=== PATIENT | male | born 1995 | race Caucasian/White ===

== ENCOUNTER 2017-05-24 14:01 | Emergency (ER) | payer MEDICAID ==
[~2017-05-24] VITALS: Ht 182.9 cm; Wt 81.8 kg
[2017-05-24] MEDS ORDERED: RIVA20TA PO (14:12)
[2017-05-24] MEDS ORDERED: ACYC200C PO (14:12)
[2017-05-24] MEDS ORDERED: BUDE3CAP15 PO (14:12)
[2017-05-24] MEDS ORDERED: URSO300C4 PO (14:12)
[2017-05-24] MEDS ORDERED: SIRO1 PO (14:12)
[2017-05-24 15:25] VITALS: BP 129/86
[2017-05-24] MEDS ORDERED: HYDROmorphone 2 MG/ML SYRINGE IM ONE (15:45)
[2017-05-24] MEDS ORDERED: ONDANSETRON HCL 4 MG TABLET PO ONE (15:45)
== END 2017-05-24 15:56 | disposition home or self-care (01) ==
LOC: EMS 14:03
DX: S29.012A Strain of muscle and tendon of back wall of thorax, initial encounter (principal); X58.XXXA Exposure to other specified factors, initial encounter; Y93.89 Activity, other specified; Y92.89 Other specified places as the place of occurrence of the external cause; Y99.8 Other external cause status; Z99.2 Dependence on renal dialysis
CPT/HCPCS: 96372; 99283; J1170; Q0162

== ENCOUNTER 2017-06-23 23:22 | Emergency (ER) | payer MEDICAID ==
[~2017-06-23] VITALS: Ht 182.9 cm; Wt 81.8 kg
[~2017-06-23 23:22] MED LIST: ACYC200C PO; BUDE3CAP15 PO; RIVA20TA PO; SIRO1 PO; URSO300C4 PO
[2017-06-23] MEDS ORDERED: DABI75CA3 PO (23:38)
[2017-06-24] LABS: BASOPHILS # (AUTO) 0.01 K/uL (0.00-0.20); BASOPHILS % (AUTO) 0.3 % (0.0-2.0); EOSINOPHILS # (AUTO) 0.59 K/uL (0.00-0.70); EOSINOPHILS % (AUTO) 14.95 % (1.0-6.0); HEMATOCRIT 44.8 % (41-53); HEMOGLOBIN 14.9 g/dL (13.5-17.5); LYMPHOCYTES # (AUTO) 1.6 K/uL (1.0-4.8); LYMPHOCYTES % (AUTO) 41.4 % (22.0-44.0); MEAN CORPUSCULAR HEMOGLOBIN 30.6 pg (26.0-34.0); MEAN CORPUSCULAR HGB CONC 33.3 G/dL (31.0-37.0); MEAN CORPUSCULAR VOLUME 92 fL (80-100); MONOCYTES # (AUTO) 0.5 K/uL (0.1-1.0); MONOCYTES % (AUTO) 13.2 % (2.0-9.0); NEUTROPHILS # (AUTO) 1.2 K/uL (1.8-7.7); NEUTROPHILS % (AUTO) 30.2 % (40.0-70.0); PLATELET COUNT (AUTO) 146 K/uL (150-450); RED BLOOD CELL COUNT(AUTO) 4.89 MIL/uL (4.50-5.90); RED CELL DISTRIBUTION WIDTH 17.8 % (11.5-14.5)
[2017-06-24 00:10] LABS: ANION GAP 4 mmol/L (8-16); CARBON DIOXIDE 30 mmol/L (22-29); CHLORIDE 103 mmol/L (98-107); CREATININE 1.08 mg/dL (0.60-1.30); GLOMERULAR FILTR. RATE CALC > 60 mL/min (>60); GLUCOSE,RANDOM 112 mg/dL (70-110); POTASSIUM 3.9 mmol/L (3.5-5.1); SODIUM SERUM 137 mmol/L (136-145); UREA NITROGEN, BLOOD 11 mg/dL (7-18)
[2017-06-24 00:16] LABS: ALANINE AMINOTRANSFERASE 44 U/L (12-78); ALBUMIN 3.9 g/dL (3.4-5.0); ALKALINE PHOSPHATASE 106 U/L (46-116); ASPARTATE AMINOTRANSFERASE 24 U/L (15-37); BILIRUBIN,TOTAL 0.4 mg/dL (0.1-1.0); TOTAL PROTEIN, SERUM 7.5 g/dL (6.4-8.2)
[2017-06-24 04:44] LABS: APPEARANCE,URINE CLEAR (CLEAR); GLUCOSE, URINE (UA) NEGATIVE (NEGATIVE); KETONES,URINE NEGATIVE (NEGATIVE); LEUKOCYTE ESTERASE ,URINE NEGATIVE (NEGATIVE); NITRATE,URINE NEGATIVE (NEGATIVE); OCCULT BLOOD,URINE NEGATIVE (NEGATIVE); PH,URINE 6.5 (5.0-8.0); PROTEIN,URINE POS 1+ (NEGATIVE)
[2017-06-24 04:46] LABS: BILIRUBIN,URINE PRELIM. POSITIVE (NEGATIVE)
[2017-06-24 05:23] VITALS: BP 106/70
[2017-06-24 05:31] LABS: LIPASE 135 U/L (73-393)
== END 2017-06-24 06:16 | disposition home or self-care (01) ==
LOC: EMS 23:22
DX: R10.811 Right upper quadrant abdominal tenderness (principal); R11.2 Nausea with vomiting, unspecified; R19.7 Diarrhea, unspecified
CPT/HCPCS: 99285